=== PATIENT | female | born 1950 | race Caucasian/White ===

== ENCOUNTER 2017-12-20 17:06 | Emergency (ER) | payer BC ==
[~2017-12-20] VITALS: Ht 170.2 cm; Wt 70.0 kg
[2017-12-20] MEDS ORDERED: ACETAMINOPHEN 325MG TABLET PO ONE (19:00)
[2017-12-20] MEDS ORDERED: HYDROCODONE/ACETAMINOPHEN 5/325MG TABLET PO ONE (19:15)
[2017-12-20] MEDS ORDERED: KETOROLAC 30MG/ML VIAL IM ONE (19:15)
[2017-12-20 19:24] VITALS: BP 115/79
== END 2017-12-20 20:18 | disposition left against medical advice (07) ==
LOC: ER 17:06
DX: S69.92XA Unspecified injury of left wrist, hand and finger(s), initial encounter (principal); E03.9 Hypothyroidism, unspecified; W01.0XXA Fall on same level from slipping, tripping and stumbling without subsequent striking against object, initial encounter; Y93.89 Activity, other specified; Y92.018 Other place in single-family (private) house as the place of occurrence of the external cause
CPT/HCPCS: 96372; 99283; J1885; A4565